=== PATIENT | female | born 2000 | race Caucasian/White ===

== ENCOUNTER → 2020-04-15 16:31 | Outpatient (CLI) | payer OTHER, SELFPAY ==
[2020-04-15 19:10] LABS: Bacteria Urine None Seen
[2020-04-15 19:27] LABS: Appearance Urine UA CLEAR; Bilirubin Urine UA NEGATIVE (NEGATIVE); Color Urine UA YELLOW; Glucose Urine UA NEGATIVE (Negative); Ketones Urine UA 3+ (NEGATIVE); Leukocyte Esterase Urine UA NEGATIVE (NEGATIVE); Nitrite Urine UA NEGATIVE (Negative); Occult Blood Urine UA NEGATIVE (Negative); Protein Urine UA NEGATIVE (Negative); Specific Gravity Urine UA >=1.030 (1.000-1.035); Urobilinogen Urine UA 0.2 E.U./dL (0.2)
[2020-04-15 19:30] LABS: Culture Indicated Urine Specimen Cultured; Mucus Urine 2+ (Negative); RBC Urine 0-1/HPF (0-5/HPF); Squamous Epithelial Cell Urine 0-1 /HPF (0-5/HPF); WBC Urine 5-10/HPF (0-5/HPF)
== END ==
PROVIDERS: Visit Provider Nurse Practitioner
DX: N89.8 Other specified noninflammatory disorders of vagina (principal); B96.89 Other specified bacterial agents as the cause of diseases classified elsewhere; L53.9 Erythematous condition, unspecified; N76.0 Acute vaginitis
CPT/HCPCS: 81001; 87070; 87077; 87086; 87147; 87205; 87210

== ENCOUNTER → 2020-04-17 16:40 | Outpatient (CLI) | payer OTHER, SELFPAY ==
[2020-04-19 16:08] LABS: Candida species Negative (Negative); Gardnerella vaginalis Positive (Negative); Trichomoas vaginalis Negative (Negative)
== END ==
PROVIDERS: Visit Provider Obstetrics & Gynecology
DX: N76.0 Acute vaginitis (principal)
CPT/HCPCS: 87480; 87510; 87660